=== PATIENT | male | born 1985 | race Caucasian/White ===

== ENCOUNTER 2018-10-19 11:51 | Emergency (ER) ==
[2018-10-19 11:59] VITALS: BP 150/99; TEMP 97.6; BMI 23.7
--- NOTE | 2018-10-19 14:12 | ED.PDOC ---
General ED Provider: Dr. ROMAINE GRAF Chief Complaint: Tooth Problem Stated Complaint: Severe Dental Pain Time Seen by Physician: 14:10 Mode of Arrival: Walk-In Information Source: Patient Exam Limitations: No limitations Primary Care Provider: NONE Nursing and Triage Documentation Reviewed and Agree: Yes Does patient meet sepsis criteria?: No System Inflammatory Response Syndrome: Not Applicable Sepsis Protocol: For patient's 13 years and over: Temp is 96.8 and below OR 101 and greater Pulse >90 BPM Resp >20/minute Acutely Altered Mental Status Are patient's symptoms suggestive of a new infection, such as: -Pneumonia -Skin, Soft Tissue -Endocarditis -UTI -Bone, Joint Infection -Implantable Device -Acute Abdominal Infection -Wound Infection -Meningitis -Blood Stream Catheter Infection -Unknown EENT Complaint Exam - Dental/Oral Complaint/Exam Mechanism of Injury: Unknown Onset/Duration: 3 days ago Symptoms Are: Worse Timing: Constant Initial Severity: Moderate Current Severity: Severe Location: Rt Mandibular-molar #3; Very painful to percussion Character: Reports: Throbbing Aggravating: Reports: Chewing Alleviating: Reports: Cold Associated Signs and Symptoms: Reports: Swelling, Foul taste in mouth Related History: Reports: Similar episode Cardiac Risk Factors: Reports: None Dental/Oral Surgical History: Reports: None Tooth Findings: Present: Percussion tenderness, Gross decay, Gross caries, Abcess Cervical Lymphadenopathy Present: No Facial Swelling Present: Yes (rt mandibular) Septal Hematoma: No Foreign Body Present: No Dysphagia Present: No Drooling Present: No Asymmetrical Tonsillar Swelling Present: No Uvula Midline: Yes Malia-tonsillar Fluctuence: No Trismus Present: No Palatal Petechiae Present: No Scarlatinaform Rash Present: No Differential Diagnoses: Dental Abcess, Dental Caries, Fractured Tooth, Odontogenic Pain, Periodontic Disease Review of Systems - Review Of Systems Constitutional: Reports: No symptoms Eyes: Reports: No symptoms Ears, Nose, Mouth, Throat: Reports: No symptoms Respiratory: Reports: No symptoms Cardiac: Reports: No symptoms GI: Reports: No symptoms : Reports: No symptoms Musculoskeletal: Reports: No symptoms Skin: Reports: No symptoms Neurological: Reports: No symptoms Endocrine: Reports: No symptoms Hematologic/Lymphatic: Reports: No symptoms All Other Systems: Reviewed and Negative Past Medical History - Past Medical History Previously Healthy: Yes Endocrine: Reports: None Cardiovascular: Reports: None Respiratory: Reports: None Hematological: Reports: None Gastrointestinal: Reports: None Genitourinary: Reports: None Neuro/Psych: Reports: None Musculoskeletal: Reports: None Cancer: Reports: None - Surgical History General Surgical History: Reports: None - Family History Family History: Reports: None - Social History Smoking Status: Current every day smoker Hx Substance Use: No Alcohol Screening: None - Immunizations Tetanus Shot up to Date: Yes Physical Exam - Physical Exam Appearance: Well-appearing, Well-nourished Ill-appearing: Mild Pain Distress: Moderate Eyes: TIERRA, EOMI, Conjunctiva clear ENT: Ears normal, Nose normal, Oropharynx normal Respiratory: Airway patent, Breath sounds clear, Breath sounds equal, Respirations nonlabored Cardiovascular: RRR, Pulses normal, No rub, No murmur GI/: Soft, Nontender, No masses, Bowel sounds normal, No Organomegaly Musculoskeletal: Normal strength, ROM intact, No edema, No calf tenderness Skin: Warm, Dry, Normal color Neurological: Sensation intact, Motor intact, Reflexes intact, Cranial nerves intact, Alert, Oriented Psychiatric: Affect appropriate, Mood appropriate Critical Care Note - Critical Care Note Total Time (mins): 0 Course - Course Vital Signs: Temp Pulse Resp BP Pulse Ox 10/19/18 11:52 97.6 F 92 H 18 150/99 H 96 Departure - Departure Time of Disposition: 15:40 Disposition: HOME SELF-CARE Discharge Problem: Tooth ache, Infected dental caries Instructions: Toothache (ED) Condition: Fair Pt referred to PMD for follow-up: Yes (Seek Medical care once returing home) IPMP verified?: No Additional Instructions: Rinse mouth with warm Salt water Take meds Seek Dental care once returning to [place] Allergies/Adverse Reactions: Allergies No Known Allergies Allergy (Unverified 10/19/18 12:21) Home Medications: Ambulatory Orders Amoxicillin 875 mg PO BID #20 tablet 10/19/18 Hydrocodone Bit/Acetaminophen [Eugene 5-325] 1 each PO Q6HR #15 tablet 10/19/18 Hydrocodone/Acetaminophen [Eugene 5-325 Tablet] 1 each PO Q4-8H PRN #10 tablet Disposition Discussed With: Patient, Family
[2018-10-19] MEDS ORDERED: VISTARIL INJ IM STA (14:15)
[2018-10-19] MEDS ORDERED: TORADOL IM STA (14:15)
--- NOTE | 2018-10-19 15:23 | CT ---
EXAM: CT of the maxillofacial region without contrast History: Right lower jaw pain. Technique: Multiplanar CT images through the maxillofacial region were obtained without the administ ration of IV contrast Findings: The visualized intracranial contents demonstrate no acute findings. No parotid inflammati on and no parotid masses. Submandibular glands are not inflamed. No fractures are seen. There is m otion artifact which does limit evaluation. Evaluation for abscess is limited due to the lack of con trast administration. No obvious fluid collections are seen. No sarah cellulitis. Multiple missing teeth. Multiple dental caries. Paranasal sinuses and mastoid air cells are clear. Impression: Limited evaluation without IV contrast. No obvious abscess is seen and there is no vladimir k cellulitis.
== END 2018-10-19 16:05 | disposition home or self-care (01) ==
LOC: ED 11:51
DX: K08.89 Other specified disorders of teeth and supporting structures (principal); K02.7 Dental root caries; K04.7 Periapical abscess without sinus; F17.210 Nicotine dependence, cigarettes, uncomplicated
CPT/HCPCS: 96372; 99282